=== PATIENT | female | born 1940 | race Caucasian/White ===

== ENCOUNTER 2020-01-26 14:52 | Inpatient (IN) | payer MEDICARE, OTHER ==
[~2020-01-26] VITALS: Ht 162.6 cm; Wt 70.3 kg
[2020-01-26] MEDS ORDERED: Z GUARD REMEDY PASTE 57 GM TUBE TOP PRN (20:00)
[2020-01-26] MEDS ORDERED: ASPI81TA31 PO (20:15)
[2020-01-26] MEDS ORDERED: IBUP-1955 PO (20:15)
[2020-01-26] MEDS ORDERED: NITR100C6 PO (20:15)
[2020-01-26] MEDS ORDERED: LEVO50TA8 PO (20:15)
[2020-01-26] MEDS ORDERED: KETO10TA2 PO (20:15)
[2020-01-26] MEDS ORDERED: SIMV-46 PO (20:15)
[2020-01-26] MEDS ORDERED: AZEL23SP NS (20:15)
[2020-01-26] MEDS ORDERED: BIMA2.5D5 EACHEYE (20:15)
[2020-01-26] MEDS ORDERED: ZOLP12.542 PO (20:15)
[2020-01-26 20:27] VITALS: BP 149/69
--- NOTE | 2020-01-26 22:24 | NUR ---
Pt arrived in the unit at 1939 via gurney. Pt came from [facility]. [facility] x2, often forgetful and needy. Admitting diagnosis of severe left hip degenerative joint disease. No acute distress noted. Denies pain/ discomfort. Notified Dr. Dewitt and Zain BALDWIN of admission. Awaiting med recon from Zain BALDWIN. Pertinent assessment done. MRSA sent to the lab. Oriented pt to the unit and equipment. Turned and repositioned. Both heels elevated. Safety measures maintained. Call light and personal items within reach. Will continue to monitor. Addendum: 01/26/20 at 2232 by Griselda Benson RN Both heels offloaded.
--- NOTE | 2020-01-26 22:28 | NUR ---
New order from Dr. Dewitt for Percocet 5-325 Q6H PRN for pain.
[2020-01-27] MEDS: OXYCODONE/APAP 5-325 MG TABLET PO PRN (01:00)
[2020-01-27 06:01] VITALS: BP 130/68
[2020-01-27 08:00] VITALS: BP 140/66
[2020-01-27] MEDS ORDERED: KETOROLAC TROMETHAMINE 10 MG TABLET PO SCH (09:00)
[2020-01-27] MEDS ORDERED: NITROFURANTOIN/NITROFURAN MAC 100 MG CAPSULE PO SCH (09:00)
[2020-01-27] MEDS: LEVOTHYROXINE SODIUM 50 MCG TABLET PO SCH (09:21)
[2020-01-27] MEDS: ASPIRIN 81 MG TAB.CHEW PO SCH (09:21)
[2020-01-27] MEDS: SIMVASTATIN 20 MG TABLET PO SCH (09:21)
[2020-01-27 16:05] VITALS: BP 156/75
[2020-01-27] MEDS: IBUPROFEN 600 MG TABLET PO PRN (16:12)
--- NOTE | 2020-01-27 16:39 | NUR ---
patient is alert, awake, episodes of forgetful, no sob, resp even nonlabored, noted with temp 100, cooling measures done, spoke to dr fu, order obtained for Levaquin 500mg iv daily, blood cultures, cbc, bmp, order noted, no distress noted, continue to monitor
[2020-01-27] MEDS ORDERED: levoFLOXacin 500 MG/D5W 500 MG in PREMIXED 1 EACH IV SCH (17:00)
[2020-01-27 17:29] LABS: BASOPHILS % (AUTO) 0.3 % (0.0-2.0); EOSINOPHILS # (AUTO) 0.2 K/uL (0.0-0.7); HEMOGLOBIN 10.8 g/dL (10.9-14.3); LYMPHOCYTES # (AUTO) 0.8 K/uL (20.0-40.0); LYMPHOCYTES % (AUTO) 9.9 % (20.5-51.5); MEAN CORPUSCULAR HEMOGLOBIN 29.6 uug (24.7-32.8); MEAN CORPUSCULAR HGB CONC 34 g/dL (32.3-35.6); MEAN CORPUSCULAR VOLUME 87.9 fL (75.5-95.3); MONOCYTES % (AUTO) 11.9 % (0.0-11.0); NEUTROPHILS # (AUTO) 6.5 K/uL (1.8-8.9); NEUTROPHILS % (AUTO) 75.9 % (38.5-71.5); PLATELET COUNT (AUTO) 164 K/uL (179-408); RED BLOOD CELL COUNT(AUTO) 3.64 MIL/uL (3.63-4.92); WHITE BLOOD COUNT (AUTO) 8.5 K/uL (3.8-11.8)
[2020-01-27 17:38] LABS: CREATININE 0.9 mg/dL (0.6-1.3); POTASSIUM 3.5 mmol/L (3.5-5.1)
[2020-01-27] MEDS: levoFLOXacin 500 MG TABLET PO SCH (17:47)
--- NOTE | 2020-01-27 17:52 | NUR ---
changed levaquin iv to po per dr fu, first dose administered po. no distress noted, continue to monitor
[2020-01-27 20:27] VITALS: BP 134/65
[2020-01-27] MEDS: LATANOPROST OPHT DROP 2.5 ML BOTTLE OP SCH (20:32)
--- NOTE | 2020-01-28 03:20 | NUR ---
Received Patient in bed. AAO x3. No acute distress or SOB was noted. On room air. Able to make needs known. No complain of pain. All due medication given as ordered and well tolerated. Safety measures maintained, fall prevention observed. Skin assessed. All needs attended promptly. Bed in locked and low position, side rails up x2 for safety, bed alarm on. Call light and frequently using items within reach. Continue to monitor and will endorse to the oncoming nurse accordingly.
[2020-01-28 05:27] VITALS: BP 145/62
[2020-01-28 08:00] VITALS: BP 148/73
[2020-01-28] MEDS: ASPIRIN 81 MG TAB.CHEW PO SCH (08:05)
[2020-01-28] MEDS: SIMVASTATIN 20 MG TABLET PO SCH (08:05)
[2020-01-28] MEDS: OXYCODONE/APAP 5-325 MG TABLET PO PRN ×2 (08:05→20:44)
[2020-01-28] MEDS: LEVOTHYROXINE SODIUM 50 MCG TABLET PO SCH (08:05)
--- NOTE | 2020-01-28 13:14 | NUR ---
patient is alert, oriented x3, but very forgetful, gets easily distracted, poor concentration, no sob, resp even nonlabored,skin warm and dry to touch, no distress noted, participated with PT, OT services tolerated well, pain is managed with pain medication, and with TV. kept clean and dry, no skin issues noted. needs attended timely.
[2020-01-28 16:25] VITALS: BP 148/73
[2020-01-28] MEDS: levoFLOXacin 500 MG TABLET PO SCH (16:46)
[2020-01-28 20:01] VITALS: BP 140/65
[2020-01-28] MEDS: LATANOPROST OPHT DROP 2.5 ML BOTTLE OP SCH (20:18)
[2020-01-29] MEDS: ZOLPIDEM 5 MG TABLET PO PRN ×2 (00:01→21:17)
--- NOTE | 2020-01-29 05:00 | NUR ---
Received Patient in bed watching TV. AAO x3, very forgetful. Every 5 minutes patient repeats same questions and conversation over again. Patient needs constant reorientation.No acute distress or SOB was noted. On room air. Able to make needs known.Comaplints of hip pain, requested medication for pain. Administered Percocet PRN, effective. All due medication given as ordered and well tolerated. Safety measures maintained, fall prevention observed. Skin assessed. All needs attended promptly. Assisted patient to the bathroom with a walker. Used the commode later on in the night. Patient is continent. patient slept well through the night, administered Ambien, as per patient request. Safety measures in place, Bed in locked and low position, side rails up x2 for safety, bed alarm on. Call light and frequently using items within reach. Continue to monitor and will endorse to the oncoming nurse accordingly.
[2020-01-29 05:41] VITALS: BP 146/69
[2020-01-29 07:30] VITALS: BP 154/73
[2020-01-29] MEDS: OXYCODONE/APAP 5-325 MG TABLET PO PRN (07:43)
[2020-01-29] MEDS: SIMVASTATIN 20 MG TABLET PO SCH (09:39)
[2020-01-29] MEDS: ASPIRIN 81 MG TAB.CHEW PO SCH (09:39)
[2020-01-29] MEDS: LEVOTHYROXINE SODIUM 50 MCG TABLET PO SCH (09:39)
--- NOTE | 2020-01-29 13:22 | NUR ---
INDIVIDUALIZED PLAN OF CARE
[2020-01-29 16:00] VITALS: BP 131/64
[2020-01-29] MEDS: levoFLOXacin 500 MG TABLET PO SCH (17:14)
--- NOTE | 2020-01-29 18:25 | NUR ---
Patient seen and examined by Dr. Renate MD ordered for 2 lidoderm patch for left hip and thigh daily.
[2020-01-29] MEDS: LIDOCAINE 5% PATCH TD SCH (18:46)
--- NOTE | 2020-01-29 19:35 | NUR ---
Awake, alert and forgetful, kept asking same question all over and over again. Not in respiratory distress. Complaint of slight pain on right thigh but refused pain meds offered. Instructed patient to call nurse once pain will escalate. Safety measures and fall prevention maintained. Continue care as planned.
[2020-01-29 19:51] VITALS: BP 156/70
[2020-01-29] MEDS: LATANOPROST OPHT DROP 2.5 ML BOTTLE OP SCH (20:12)
[2020-01-30] MEDS: OXYCODONE/APAP 5-325 MG TABLET PO PRN ×3 (03:10→20:41)
[2020-01-30 05:30] VITALS: BP 147/62
--- NOTE | 2020-01-30 05:36 | NUR ---
Shift End Report: Slept poorly, constantly calling for repeat questions and unnecessary. Very forgetful. Medicated once for pain with relief. No further complaint presented after, No significant event reported. Continue current rehab plan of care. Vs stable.
[2020-01-30 07:30] VITALS: BP 158/74
[2020-01-30] MEDS: SIMVASTATIN 20 MG TABLET PO SCH (08:39)
[2020-01-30] MEDS: LEVOTHYROXINE SODIUM 50 MCG TABLET PO SCH (08:39)
[2020-01-30] MEDS: ASPIRIN 81 MG TAB.CHEW PO SCH (08:39)
[2020-01-30 16:00] VITALS: BP 131/59
[2020-01-30] MEDS: levoFLOXacin 500 MG TABLET PO SCH (17:08)
--- NOTE | 2020-01-30 18:00 | NUR ---
Patient remains alert, oriented x 3, very forgetful, on room air, not in any form of distress. Due medications administered and tolerated well. Patient complained of left hip pain, given PRN pain medication with noted relief. Needs attended to promptly and met. Patient participated with therapeutic exercises. Call light and frequently used items placed within patient's reach. Safety measures maintained. Will endorse accordingly.
[2020-01-30] MEDS: LIDOCAINE 5% PATCH TD SCH (19:35)
[2020-01-30 20:00] VITALS: BP 156/80
[2020-01-30] MEDS: LATANOPROST OPHT DROP 2.5 ML BOTTLE OP SCH (20:14)
--- NOTE | 2020-01-30 20:41 | NUR ---
Received Patient in bed watching TV. AAO x3, very forgetful. Needs constant reorientation.No acute distress or SOB was noted. On room air. Able to make needs known.Complaints of hip pain, requested medication for pain. Administered Percocet PRN, effective. All due medication given as ordered and well tolerated. applied lidocaine patch to her hip. Safety measures in place, Bed in locked and low position, side rails up x2 for safety, bed alarm on. Call light and frequently using items within reach. Continue to monitor.
[2020-01-30] MEDS: ZOLPIDEM 5 MG TABLET PO PRN (21:24)
--- NOTE | 2020-01-30 21:28 | NUR ---
administered Ambien, per patient request to help fall asleep, will monitor for effectiveness through the night.
[2020-01-31 04:00] VITALS: BP 151/73
--- NOTE | 2020-01-31 05:55 | NUR ---
Patient slept poorly, woke up multiple times. Frequent urination, incontinent. Patient verbally complained about " I am peeing too much, this is not normal." Requested to see doctor in the morning. will endorse next shift. Changed and kept clean, dry, and comfortable. Assisted onto the commode once this night. All needs attended promptly.Safety measures in place, Bed in locked and low position, side rails up x2 for safety, bed alarm on. Call light and frequently using items within reach. Continue to monitor and will endorse to the oncoming nurse accordingly.
[2020-01-31 08:31] VITALS: BP 124/82
[2020-01-31] MEDS: SIMVASTATIN 20 MG TABLET PO SCH (09:01)
[2020-01-31] MEDS: ASPIRIN 81 MG TAB.CHEW PO SCH (09:01)
[2020-01-31] MEDS: LEVOTHYROXINE SODIUM 50 MCG TABLET PO SCH (09:02)
[2020-01-31] MEDS: OXYCODONE/APAP 5-325 MG TABLET PO PRN (09:06)
--- NOTE | 2020-01-31 09:56 | NUR ---
Received patient in bed awake, Pt. is AAO x 2 with episodes of forgetfulness. No acute distress or any SOB noted. Patient c/o pain of left hip Percocet 5/325, 1 tab administered before PT. patient tolerated all due medications. Patient is ambulatory with 1 person assist and BRP. Skin kept clean and dry. Made comfortable, needs attended and will continue with care.
[2020-01-31 16:05] VITALS: BP 123/68
[2020-01-31] MEDS: levoFLOXacin 500 MG TABLET PO SCH (16:11)
[2020-01-31] MEDS: LIDOCAINE 5% PATCH TD SCH (18:37)
--- NOTE | 2020-01-31 18:43 | NUR ---
Patient in stable condition. NO SOB or any acute distress noted. Patient ambulatory with a walker and person assist. on continuous PT/OT therapy. Skin kept clean and dry, made comfortable, needs attended and met, call light left at bed side and will continue with care.
[2020-01-31 20:00] VITALS: BP 138/66
[2020-01-31] MEDS: LATANOPROST OPHT DROP 2.5 ML BOTTLE OP SCH (20:15)
--- NOTE | 2020-01-31 20:50 | NUR ---
Received pt resting in bed and watching tv. AAO x2, very forgetful. No acute distress noted. Denies pain/ discomfort. Assisted to the bathroom using walker. Due med given as ordered. Safety measures maintained. Call light and personal items within reach. Will continue to monitor.
[2020-02-01 04:53] VITALS: BP 147/74
[2020-02-01 07:30] VITALS: BP 160/72
[2020-02-01] MEDS: ASPIRIN 81 MG TAB.CHEW PO SCH (08:22)
[2020-02-01] MEDS: SIMVASTATIN 20 MG TABLET PO SCH (08:23)
[2020-02-01] MEDS: LEVOTHYROXINE SODIUM 50 MCG TABLET PO SCH (08:23)
[2020-02-01 09:00] VITALS: BP 125/70
[2020-02-01 15:54] VITALS: BP 118/70
[2020-02-01] MEDS: LIDOCAINE 5% PATCH TD SCH (17:08)
--- NOTE | 2020-02-01 18:39 | NUR ---
EOS Note: No significant acute changes during this shift. Pt. remain A/Ox1, forgetful, verbally responsive and able to make her needs known. All due medications given as ordered and tolerated well. Pt. tolerating diet well. No s/sx of bleeding. Pt. participated with PT and tolerated tx well. No new skin condition noted, remain intact. All pt. needs attended and met. Safety measures in place. Call light and all frequently used items within pt. reach. Will endorse to oncoming shift accordingly.
--- NOTE | 2020-02-01 19:29 | NUR ---
Received patient awake, alert, forgetful, requesting assistance to go to the bathroom. TRACK LABORER at bedsside, assisted with FWW, slow but steady gait. Voided good. Denied any pain/discomforts at this time. Safety measures and fall prevention maintained. Continue care as planned.
[2020-02-01 20:14] VITALS: BP 134/65
[2020-02-01] MEDS: LATANOPROST OPHT DROP 2.5 ML BOTTLE OP SCH (20:34)
[2020-02-01] MEDS: ZOLPIDEM 5 MG TABLET PO PRN (21:28)
[2020-02-02 04:00] VITALS: BP 146/72
[2020-02-02] MEDS: OXYCODONE/APAP 5-325 MG TABLET PO PRN ×2 (04:37→11:24)
--- NOTE | 2020-02-02 07:09 | NUR ---
Shift End Report: VS stable. Medicated once for pain with help. No further complaint presented. All needs attended and met. Patient very forgetful, kept asking/repeating any questions/needs/care provided. Slept fairly. No significant event reported all night. Continue current rehab plan of care.
[2020-02-02 07:40] VITALS: BP 171/87
[2020-02-02] MEDS: IBUPROFEN 600 MG TABLET PO PRN (07:52)
[2020-02-02] MEDS: LEVOTHYROXINE SODIUM 50 MCG TABLET PO SCH (08:01)
[2020-02-02] MEDS: SIMVASTATIN 20 MG TABLET PO SCH (08:01)
[2020-02-02] MEDS: ASPIRIN 81 MG TAB.CHEW PO SCH (08:01)
[2020-02-02] MEDS: VALSARTAN 80 MG TABLET PO SCH (10:06)
--- NOTE | 2020-02-02 13:16 | NUR ---
INTERDISCIPLINARY TEAM CONFERENCE
[2020-02-02 15:21] VITALS: BP 132/64
--- NOTE | 2020-02-02 18:02 | NUR ---
patient is alert, very forgetful, no sob, resp even nonlabored, skin warm and dry to touch, pain is managed with pain medication and with distractions, repositioning, no distress noted, patient is supervised to bowel, and bladder function, needs attended timely, kept safe, needs attended timely
[2020-02-02] MEDS: LIDOCAINE 5% PATCH TD SCH (18:57)
--- NOTE | 2020-02-02 19:36 | NUR ---
Awake, alert and orient to name, place and situation but very forgetful. Denies any pain/discomforts at this time. Safety measures and fall prevention maintained. Continue care as planned.
[2020-02-02 20:12] VITALS: BP 130/61
[2020-02-02] MEDS: LATANOPROST OPHT DROP 2.5 ML BOTTLE OP SCH (20:20)
[2020-02-02] MEDS: ZOLPIDEM 5 MG TABLET PO PRN (22:59)
[2020-02-03 05:24] VITALS: BP 137/66
--- NOTE | 2020-02-03 06:01 | NUR ---
Shift End Report: Slept in between care. Constantly calling and calling for help. No complaint of pain presented all night. Had BM x2 incontinence. All needs attended and met. No fall/injury. No significant event reported. Continue current rehab plan of care. VS stable.
[2020-02-03] MEDS: OXYCODONE/APAP 5-325 MG TABLET PO PRN ×2 (06:25→12:26)
[2020-02-03 08:00] VITALS: BP 137/75
[2020-02-03] MEDS: SIMVASTATIN 20 MG TABLET PO SCH (08:21)
[2020-02-03] MEDS: ASPIRIN 81 MG TAB.CHEW PO SCH (08:21)
[2020-02-03] MEDS: VALSARTAN 80 MG TABLET PO SCH (08:21)
[2020-02-03] MEDS: LEVOTHYROXINE SODIUM 50 MCG TABLET PO SCH (08:21)
[2020-02-03] MEDS: IBUPROFEN 600 MG TABLET PO PRN (08:22)
[2020-02-03 16:19] VITALS: BP 127/65
[2020-02-03] MEDS: LIDOCAINE 5% PATCH TD SCH (18:22)
--- NOTE | 2020-02-03 18:22 | NUR ---
no distress noted during shift, noted with blanchable redness to right heel, and to left buttock, repositioned patient, heels floated, convinced patient to stay on her side for 2 hours, patient goes back to her back, independent for positioning, continue to monitor and convince to stay on side as tolerated.
--- NOTE | 2020-02-03 18:52 | NUR ---
patient kept calling to station to position her on her back, does not want to stay on her side, and does not want to float her heels, risks and benefit explained regarding skin, patient verbalized understanding of it.
[2020-02-03] MEDS: LATANOPROST OPHT DROP 2.5 ML BOTTLE OP SCH (20:17)
[2020-02-03 20:55] VITALS: BP 124/64
--- NOTE | 2020-02-03 21:03 | NUR ---
Received pt resting in bed. AAO x2-3, very forgetful. No acute distress noted. Denies pain/ discomfort. Due med given as ordered. Turned and repositioned but pt would often go back on her back. Risks and benefits explained. Both heels offloaded. Safety measures maintained. Call light and personal items within reach. Will continue to monitor.
[2020-02-04] MEDS: OXYCODONE/APAP 5-325 MG TABLET PO PRN ×2 (04:57→20:14)
[2020-02-04 05:39] VITALS: BP 119/77
[2020-02-04 08:00] VITALS: BP 130/60
[2020-02-04] MEDS: ASPIRIN 81 MG TAB.CHEW PO SCH (08:36)
[2020-02-04] MEDS: VALSARTAN 80 MG TABLET PO SCH (08:36)
[2020-02-04] MEDS: SIMVASTATIN 20 MG TABLET PO SCH (08:36)
[2020-02-04] MEDS: LEVOTHYROXINE SODIUM 50 MCG TABLET PO SCH (08:36)
--- NOTE | 2020-02-04 11:30 | NUR ---
Received patient in bed awake, Pt. is AAO x 2 with forgetfulness noted. No acute distress or any SOB noted. Denies pain at this time. All due medications administered and tolerated well. Patient is ambulatory with 1 person assist and BRP. On continuous PT/OT therapy. Skin kept clean and dry. Made comfortable, needs attended and will continue with care.
[2020-02-04 16:03] VITALS: BP 125/60
[2020-02-04] MEDS: LIDOCAINE 5% PATCH TD SCH (18:49)
[2020-02-04 19:34] VITALS: BP 127/61
--- NOTE | 2020-02-04 19:51 | NUR ---
End of shift report given to PM nurse.
[2020-02-04] MEDS: LATANOPROST OPHT DROP 2.5 ML BOTTLE OP SCH (21:50)
[2020-02-05] MEDS: ZOLPIDEM 5 MG TABLET PO PRN ×2 (02:52→23:43)
--- NOTE | 2020-02-05 04:04 | NUR ---
Received Patient in bed. AAO x3, very forgetful. No acute distress or SOB was noted. On room air. Able to make needs known. Complained of pain on the left hip, rated her pain 6/10 on numeric scale, PRN Percocet 5-325 administered and effective. All due medication given as ordered and well tolerated. Patient asked for sleeping pill, Ambien 5 mg given. Pain assessed and reassessed after pain medication. Safety measures maintained, fall prevention observed. Skin assessed. All needs attended promptly. Bed in locked and low position, side rails up x2 for safety, bed alarm on. Call light and frequently using items within reach. Continue to monitor and will endorse to the oncoming nurse accordingly.
[2020-02-05 05:07] VITALS: BP 126/57
[2020-02-05 08:19] VITALS: BP 126/69
[2020-02-05] MEDS: LEVOTHYROXINE SODIUM 50 MCG TABLET PO SCH (08:22)
[2020-02-05] MEDS: SIMVASTATIN 20 MG TABLET PO SCH (08:22)
[2020-02-05] MEDS: ASPIRIN 81 MG TAB.CHEW PO SCH (08:22)
[2020-02-05] MEDS: VALSARTAN 80 MG TABLET PO SCH (08:23)
[2020-02-05] MEDS: OXYCODONE/APAP 5-325 MG TABLET PO PRN ×2 (09:17→20:51)
--- NOTE | 2020-02-05 11:19 | NUR ---
Received patient awake in bed with periods of forgetful. Patient continue therapy for ambulation and unsteady gait. Patient continue pain management prior to therapy with good effect. Patient continue fall risk precaution maintained. will continue monitor
[2020-02-05 15:45] VITALS: BP 111/41
[2020-02-05] MEDS: LIDOCAINE 5% PATCH TD SCH (18:00)
[2020-02-05 20:00] VITALS: BP 119/67
[2020-02-05] MEDS: LATANOPROST OPHT DROP 2.5 ML BOTTLE OP SCH (20:49)
[2020-02-06 04:50] VITALS: BP 115/47
--- NOTE | 2020-02-06 05:21 | NUR ---
No acute events overnight, no falls, no fever, no nausea and no vomiting. pain is well managed with current pain regimen, pt able to ambulate to the bathroom with assist with the front wheel walker
[2020-02-06] MEDS: OXYCODONE/APAP 5-325 MG TABLET PO PRN ×3 (05:45→20:42)
[2020-02-06 07:30] VITALS: BP 119/59
[2020-02-06] MEDS: SIMVASTATIN 20 MG TABLET PO SCH (08:12)
[2020-02-06] MEDS: LEVOTHYROXINE SODIUM 50 MCG TABLET PO SCH (08:12)
[2020-02-06] MEDS: ASPIRIN 81 MG TAB.CHEW PO SCH (08:12)
[2020-02-06] MEDS: VALSARTAN 80 MG TABLET PO SCH (08:12)
--- NOTE | 2020-02-06 15:08 | NUR ---
Received patient awake in bed in stable condition. AOX2, forgetful. Patient continue pain management prior to therapy, given. Not in distress. Patient assisted from bed to bathroom with FWW. tolerated well. will continue monitor
[2020-02-06 15:16] VITALS: BP 121/50
[2020-02-06] MEDS: LIDOCAINE 5% PATCH TD SCH (18:02)
[2020-02-06] MEDS: IBUPROFEN 600 MG TABLET PO PRN (18:05)
[2020-02-06 20:00] VITALS: BP 121/50
[2020-02-06] MEDS: LATANOPROST OPHT DROP 2.5 ML BOTTLE OP SCH (20:42)
--- NOTE | 2020-02-06 22:00 | NUR ---
received patient awake , able to follow simple command with forgetfulness on RA, uses a walker to get up , assist to the commode , doesn't want to be bothered , patient wants to go t sleep , pain of left hip 07/14 after percocet
--- NOTE | 2020-02-06 22:13 | NUR ---
is involved in the patient;s planc of care , patient follows commmand but needs reinforcement for routine an care plan of care Addendum: 02/06/20 at 2213 by TARA JACOME RN Amended: Hector added. Addendum: 02/06/20 at 2217 by TARA JACOME RN Amended: Hector added. Addendum: 02/06/20 at 2218 by TARA JACOME RN Amended: Links added. Addendum: 02/06/20 at 2219 by TARA JACOME RN Amended: Links added. Addendum: 02/06/20 at 2220 steven JACOME RN Amended: Links added.
--- NOTE | 2020-02-06 22:16 | NUR ---
patient is able to call and able to use the commode , patient also use the walker occasionally with 1 person assist Addendum: 02/06/20 at 2217 by TARA JACOME RN Amended: Links added. Addendum: 02/06/20 at 2217 by TARA JACOME RN Amended: Links added. Addendum: 02/06/20 at 2219 by TARA JACOME RN Amended: Links added. Addendum: 02/06/20 at 2220 by TARA JACOME RN Amended: Links added.
--- NOTE | 2020-02-06 22:18 | NUR ---
able to swallow with no noted difficulty , will tolerate regualr diet while in the hospital Addendum: 02/06/20 at 2218 by TARA JACOME RN Amended: Hector added. Addendum: 02/06/20 at 2219 by TARA JACOME RN Amended: Hector added. Addendum: 02/06/20 at 2220 by TARA JACOME RN Amended: Links added.
--- NOTE | 2020-02-06 22:19 | NUR ---
patient will not have incidents of fall during hospitalization , will be able t ouse the call light for assist on activities Addendum: 02/06/20 at 2219 by TARA JACOME RN Amended: Links added. Addendum: 02/06/20 at 2220 steven JACOME RN Amended: Links added.
--- NOTE | 2020-02-06 22:20 | NUR ---
patient is able to talk and express self with no difficulty Addendum: 02/06/20 at 2220 by TARA JACOME RN Amended: Links added.
--- NOTE | 2020-02-06 22:29 | NUR ---
patient needs reinforcement on medication ins and routine care Addendum: 02/06/20 at 2229 by TARA JACOME RN Amended: Links added.
--- NOTE | 2020-02-06 22:32 | NUR ---
patient needs reinforcement on medication ins and routine care Addendum: 02/06/20 at 2232 by TARA JACOME RN Amended: Hector added. Addendum: 02/06/20 at 2233 by TARA JACOME RN Amended: Hector bliss.
--- NOTE | 2020-02-06 22:33 | NUR ---
able to eat and tolerate regular diet during hospitalization Addendum: 02/06/20 at 2233 by TARA JACOME RN Amended: Links added.
[2020-02-07 04:00] VITALS: BP 128/61
[2020-02-07] MEDS: OXYCODONE/APAP 5-325 MG TABLET PO PRN (05:49)
[2020-02-07 08:00] VITALS: BP 159/60
[2020-02-07] MEDS: SIMVASTATIN 20 MG TABLET PO SCH (08:25)
[2020-02-07] MEDS: LEVOTHYROXINE SODIUM 50 MCG TABLET PO SCH (08:25)
[2020-02-07] MEDS: ASPIRIN 81 MG TAB.CHEW PO SCH (08:25)
[2020-02-07] MEDS: VALSARTAN 80 MG TABLET PO SCH (08:25)
--- NOTE | 2020-02-07 09:50 | NUR ---
Patient is AAO x 2. No acute distress or any SOB noted. NO c/o pain. Vital signs stable for patient. Due medications administered and tolerated well. Patient is on continuous PT/OT therapy. With one person assist for care and uses the walker for ambulation and one person assist for care. Safety measures in place, call light left within easy reach and will continue with care.
[2020-02-07 13:09] VITALS: BP 114/53
[2020-02-07 16:02] VITALS: BP 113/58
--- NOTE | 2020-02-07 18:26 | NUR ---
Patient in bed and watching TV. IN stable condition. Vital signs stable. Needs attended and met. Call light left at bed side and will continue with care.
[2020-02-07] MEDS: LIDOCAINE 5% PATCH TD SCH (19:00)
[2020-02-07] MEDS: LATANOPROST OPHT DROP 2.5 ML BOTTLE OP SCH (20:13)
--- NOTE | 2020-02-07 20:42 | NUR ---
Awake, in bed, watching TV game show at this time. No s/s of respiratory distress. Denies any pain/discomforts. Safety measures and fall prevention maintained. Continue care as planned.
[2020-02-07 20:43] VITALS: BP 134/60
--- NOTE | 2020-02-08 05:44 | NUR ---
Shift End Report: VS stable. No complaint presented all night. Ambulatory to the bathroom with walker and minimal 1 person assist. No fall/injury reported. All needs attended and met. Slept in between care. No significant event reported. Continue current rehab plan of care
[2020-02-08 05:56] VITALS: BP 148/68
[2020-02-08] MEDS: OXYCODONE/APAP 5-325 MG TABLET PO PRN (07:39)
[2020-02-08 08:00] VITALS: BP 165/65
[2020-02-08] MEDS: LEVOTHYROXINE SODIUM 50 MCG TABLET PO SCH (08:35)
[2020-02-08] MEDS: ASPIRIN 81 MG TAB.CHEW PO SCH (08:35)
[2020-02-08] MEDS: VALSARTAN 80 MG TABLET PO SCH (08:35)
[2020-02-08] MEDS: SIMVASTATIN 20 MG TABLET PO SCH (08:35)
--- NOTE | 2020-02-08 09:41 | NUR ---
Received patient in bed, awake at the start of shift. Patient is AAO x 2, no acute distress noted. Vital signs stable. Patient asked for pain pill for pain on the left hip 8/10 up on assessment. Percocet 5/325 1 tab administered and tolerated well. All due scheduled morning medications administered as ordered. Repositioned for comfort. Needs attended and met. Safety measures in place, call light at bed side and will continue with care.
[2020-02-08 15:49] VITALS: BP 122/60
[2020-02-08] MEDS: LIDOCAINE 5% PATCH TD SCH (18:22)
--- NOTE | 2020-02-08 19:34 | NUR ---
patient in stable condition, VS stable. No c/o pain at this time and will continue with care.
[2020-02-08 20:00] VITALS: BP 121/59
[2020-02-08] MEDS: LATANOPROST OPHT DROP 2.5 ML BOTTLE OP SCH (20:51)
--- NOTE | 2020-02-08 20:52 | NUR ---
Received pt resting in bed. AAO x2-3, very forgetful. No acute distress noted. Denies pain/ discomfort. Due med given as ordered. Assisted to the bathroom using walker, standby assist, tolerated well. Turned and repositioned. Both heels offloaded. Safety measures maintained. Call light and personal items within reach. Will continue to monitor.
[2020-02-09 04:00] VITALS: BP 128/52
[2020-02-09 07:30] VITALS: BP 117/81
[2020-02-09] MEDS: LEVOTHYROXINE SODIUM 50 MCG TABLET PO SCH (08:12)
[2020-02-09] MEDS: ASPIRIN 81 MG TAB.CHEW PO SCH (08:12)
[2020-02-09] MEDS: SIMVASTATIN 20 MG TABLET PO SCH (08:12)
[2020-02-09] MEDS: VALSARTAN 80 MG TABLET PO SCH (08:15)
--- NOTE | 2020-02-09 08:20 | NUR ---
Patient awake, alert, oriented x3, forgetful, not in any form of distress, on room air. Due medications administered and tolerated well. No complain of any discomfort at this time. Assisted patient to the bathroom and back to bed, ambulated with walker. Call light and frequently used items placed within patient's reach. Safety measures maintained.
[2020-02-09] MEDS: OXYCODONE/APAP 5-325 MG TABLET PO PRN ×2 (09:59→21:13)
--- NOTE | 2020-02-09 15:25 | NUR ---
INTERDISCIPLINARY TEAM CONFERENCE
[2020-02-09 15:48] VITALS: BP 94/59
[2020-02-09] MEDS: LIDOCAINE 5% PATCH TD SCH (19:32)
[2020-02-09] MEDS: LATANOPROST OPHT DROP 2.5 ML BOTTLE OP SCH (20:16)
[2020-02-09 21:17] VITALS: BP 120/64
--- NOTE | 2020-02-10 03:50 | NUR ---
Received Patient in bed. AAO x3, very forgetful. No acute distress or SOB was noted. On room air. Able to make needs known. Complained of pain on her left hip, rated her pain 6/10 in numeric scale, Percocet 5-325 mg administered and effective. All due medication given as ordered and well tolerated. Pin assessed and reassessed afterpain medication. Safety measures maintained, fall prevention observed. Skin assessed. All needs attended promptly. Bed in locked and low position, side rails up x2 for safety, bed alarm on. Call light and frequently using items within reach. Continue to monitor and will endorse to the oncoming nurse accordingly.
[2020-02-10 04:55] VITALS: BP 127/60
[2020-02-10 08:00] VITALS: BP 140/55
[2020-02-10] MEDS: VALSARTAN 80 MG TABLET PO SCH (08:11)
[2020-02-10] MEDS: LEVOTHYROXINE SODIUM 50 MCG TABLET PO SCH (08:19)
[2020-02-10] MEDS: SIMVASTATIN 20 MG TABLET PO SCH (08:20)
[2020-02-10] MEDS: ASPIRIN 81 MG TAB.CHEW PO SCH (08:20)
--- NOTE | 2020-02-10 14:56 | NUR ---
Received patient awake in bed in stable condition. AOx3, forgetful, no complaint of pain/discomfort noted. Patient continue pain management prior to therapy. Assisted from bed to bathroom with FWW. tolerated well. Patient for discharge at 3pm. Patient spouse will pick her up via private car. Discharge prescription given to patient. Procedures result given to patients. not in distress. will continue monitor
[2020-02-10 15:00] VITALS: BP 124/52
[2020-02-10] MEDS: OXYCODONE/APAP 5-325 MG TABLET PO PRN (15:13)
--- NOTE | 2020-02-10 16:22 | NUR ---
Patient discharge to home around 4pm in stable condition via private car. timekeeping supervisor by . Discharge summary and discharge prescription given to patient and explain to spouse. verbalize understanding. Controlled medication prescription given to spouse. Pain medication given prior discharge.
== END 2020-02-10 16:15 | disposition home health service (06) | DRG 558 ==
PROVIDERS: ADMIT Physical Medicine & Rehabilitation Pain Medicine; ATTEND Physical Medicine & Rehabilitation Pain Medicine
DX: M70.62 Trochanteric bursitis, left hip (principal); M16.12 Unilateral primary osteoarthritis, left hip; M79.18 Myalgia, other site; S70.02XD Contusion of left hip, subsequent encounter; G89.29 Other chronic pain; I10 Essential (primary) hypertension; K21.9 Gastro-esophageal reflux disease without esophagitis; Z91.81 History of falling; Z86.73 Personal history of transient ischemic attack (TIA), and cerebral infarction without residual deficits; W01.0XXD Fall on same level from slipping, tripping and stumbling without subsequent striking against object, subsequent encounter; R53.81 Other malaise; Z88.0 Allergy status to penicillin; E03.9 Hypothyroidism, unspecified; R79.89 Other specified abnormal findings of blood chemistry
CPT/HCPCS: 36415; 85025; 87040; J1956; J7040

== ENCOUNTER 2020-03-29 15:06 | Inpatient (IN) | payer MEDICARE, OTHER ==
[~2020-03-29] VITALS: Ht 162.6 cm; Wt 69.5 kg
[~2020-03-29 15:06] MED LIST: ASPI81TA31 PO; AZEL23SP NS; BIMA2.5D5 EACHEYE; IBUP-1955 PO; KETO10TA2 PO; LEVO50TA8 PO; NITR100C6 PO; SIMV-46 PO; ZOLP12.542 PO
[2020-03-29] MEDS ORDERED: Z GUARD REMEDY PASTE 57 GM TUBE TOP PRN (19:30)
[2020-03-29 21:21] VITALS: BP 109/54
[2020-03-29] MEDS ORDERED: ASPI-612 PO (22:07)
[2020-03-29] MEDS ORDERED: OMEP20CA16 PO (22:07)
[2020-03-29] MEDS ORDERED: BIMA2.5D5 EACHEYE (22:07)
[2020-03-29] MEDS ORDERED: OXYC10TA49 PO (22:07)
[2020-03-29] MEDS ORDERED: ZOLP12.542 PO (22:07)
[2020-03-29] MEDS ORDERED: AZEL23SP BNOSTRILS (22:07)
[2020-03-29] MEDS ORDERED: LEVO50TA8 PO (22:07)
[2020-03-29] MEDS ORDERED: SIMV-46 PO (22:07)
[2020-03-30 05:40] VITALS: BP 120/58
[2020-03-30 08:00] VITALS: BP 119/58
[2020-03-30] MEDS: KETOROLAC TROMETHAMINE 10 MG TABLET PO SCH (08:47)
[2020-03-30] MEDS: ASPIRIN 81 MG TAB.CHEW PO SCH (08:47)
[2020-03-30] MEDS: LEVOTHYROXINE SODIUM 50 MCG TABLET PO SCH (11:13)
[2020-03-30 16:10] VITALS: BP 110/48
[2020-03-30 20:00] VITALS: BP 128/65
[2020-03-30] MEDS: OXYCODONE HCL 5 MG TABLET PO PRN (20:13)
[2020-03-30] MEDS: LATANOPROST OPHT DROP 2.5 ML BOTTLE EACHEYE SCH (20:13)
[2020-03-30] MEDS: SIMVASTATIN 20 MG TABLET PO SCH (20:13)
[2020-03-31] MEDS: diphenhydrAMINE 25 MG CAP PO PRN (00:44)
[2020-03-31 04:00] VITALS: BP 112/53
[2020-03-31] MEDS: LEVOTHYROXINE SODIUM 50 MCG TABLET PO SCH (06:16)
[2020-03-31 08:00] VITALS: BP 122/62
[2020-03-31] MEDS: KETOROLAC TROMETHAMINE 10 MG TABLET PO SCH (08:53)
[2020-03-31] MEDS: ASPIRIN 81 MG TAB.CHEW PO SCH (08:53)
[2020-03-31] MEDS: OXYCODONE HCL 5 MG TABLET PO PRN ×2 (08:53→21:32)
[2020-03-31] MEDS: DOCUSATE SODIUM 100 MG CAPSULE PO SCH ×2 (12:33→21:31)
[2020-03-31] MEDS: MIRALAX 17 GM POWD.PACK PO PRN (12:37)
[2020-03-31 16:00] VITALS: BP 109/56
[2020-03-31 20:00] VITALS: BP 127/57
[2020-03-31] MEDS: LATANOPROST OPHT DROP 2.5 ML BOTTLE EACHEYE SCH (21:31)
[2020-03-31] MEDS: SIMVASTATIN 20 MG TABLET PO SCH (21:32)
[2020-04-01] MEDS: OXYCODONE HCL 5 MG TABLET PO PRN ×3 (05:42→20:27)
[2020-04-01 05:49] VITALS: BP 142/69
[2020-04-01] MEDS: LEVOTHYROXINE SODIUM 50 MCG TABLET PO SCH (06:01)
[2020-04-01 06:15] LABS: BASOPHILS % (AUTO) 0.3 % (0.0-2.0); EOSINOPHILS # (AUTO) 0.2 K/uL (0.0-0.7); EOSINOPHILS % (AUTO) 2.6 % (0.0-7.0); HEMATOCRIT 29.3 % (31.2-41.9); LYMPHOCYTES % (AUTO) 11.4 % (20.5-51.5); MEAN CORPUSCULAR HEMOGLOBIN 31.2 uug (24.7-32.8); MEAN CORPUSCULAR HGB CONC 34 g/dL (32.3-35.6); MEAN CORPUSCULAR VOLUME 91.2 fL (75.5-95.3); MONOCYTES # (AUTO) 0.8 K/uL (2.0-10.0); MONOCYTES % (AUTO) 10.1 % (0.0-11.0); NEUTROPHILS # (AUTO) 6.3 K/uL (1.8-8.9); NEUTROPHILS % (AUTO) 75.6 % (38.5-71.5); PLATELET COUNT (AUTO) 219 K/uL (179-408); RED BLOOD CELL COUNT(AUTO) 3.21 MIL/uL (3.63-4.92); WHITE BLOOD COUNT (AUTO) 8.4 K/uL (3.8-11.8)
[2020-04-01 06:55] LABS: BILIRUBIN,TOTAL 1.2 mg/dL (0.2-1.0); CREATININE 0.7 mg/dL (0.6-1.3); MAGNESIUM 2.2 mg/dL (1.8-2.4); PHOSPHOROUS 3.2 mg/dL (2.5-4.9); POTASSIUM 4.1 mmol/L (3.5-5.1); TOTAL PROTEIN, SERUM 5.6 g/dL (6.4-8.2)
[2020-04-01 07:30] VITALS: BP 134/72
[2020-04-01 07:34] LABS: THYROID STIMULATING HORMONE 6.326 mIU/mL (0.358-3.740)
[2020-04-01] MEDS: diphenhydrAMINE 25 MG CAP PO PRN (09:06)
[2020-04-01] MEDS: DOCUSATE SODIUM 100 MG CAPSULE PO SCH ×2 (09:06→20:27)
[2020-04-01] MEDS: ASPIRIN 81 MG TAB.CHEW PO SCH (09:06)
[2020-04-01] MEDS: KETOROLAC TROMETHAMINE 10 MG TABLET PO SCH (09:10)
[2020-04-01] MEDS: MIRALAX 17 GM POWD.PACK PO PRN (09:14)
[2020-04-01 15:50] VITALS: BP 115/51
[2020-04-01 20:00] VITALS: BP 123/59
[2020-04-01] MEDS: SIMVASTATIN 20 MG TABLET PO SCH (20:27)
[2020-04-01] MEDS: LATANOPROST OPHT DROP 2.5 ML BOTTLE EACHEYE SCH (20:51)
[2020-04-02] MEDS: diphenhydrAMINE 25 MG CAP PO PRN ×2 (01:48→17:08)
[2020-04-02 04:00] VITALS: BP 120/68
[2020-04-02] MEDS: LEVOTHYROXINE SODIUM 50 MCG TABLET PO SCH (06:10)
[2020-04-02 07:30] VITALS: BP 133/63
[2020-04-02] MEDS: DOCUSATE SODIUM 100 MG CAPSULE PO SCH ×2 (09:10→20:35)
[2020-04-02] MEDS: ASPIRIN 81 MG TAB.CHEW PO SCH (09:10)
[2020-04-02] MEDS: KETOROLAC TROMETHAMINE 10 MG TABLET PO SCH (09:10)
[2020-04-02] MEDS: OXYCODONE HCL 5 MG TABLET PO PRN (12:38)
[2020-04-02 16:00] VITALS: BP 120/52
[2020-04-02 20:19] VITALS: BP 137/69
[2020-04-02] MEDS: LATANOPROST OPHT DROP 2.5 ML BOTTLE EACHEYE SCH (20:36)
[2020-04-03 04:41] VITALS: BP 131/56
[2020-04-03] MEDS: LEVOTHYROXINE SODIUM 50 MCG TABLET PO SCH (06:52)
[2020-04-03 08:54] VITALS: BP 117/58
[2020-04-03] MEDS: DOCUSATE SODIUM 100 MG CAPSULE PO SCH ×2 (09:00→20:35)
[2020-04-03] MEDS: OXYCODONE HCL 5 MG TABLET PO PRN ×2 (10:07→19:23)
[2020-04-03] MEDS: ASPIRIN 81 MG TAB.CHEW PO SCH (10:07)
[2020-04-03 11:51] LABS: BASOPHILS # (AUTO) 0.1 K/uL (0.0-8.0); BASOPHILS % (AUTO) 0.8 % (0.0-2.0); EOSINOPHILS # (AUTO) 0.1 K/uL (0.0-0.7); EOSINOPHILS % (AUTO) 1.5 % (0.0-7.0); HEMATOCRIT 28.5 % (31.2-41.9); HEMOGLOBIN 9.8 g/dL (10.9-14.3); LYMPHOCYTES # (AUTO) 1.3 K/uL (20.0-40.0); LYMPHOCYTES % (AUTO) 14.7 % (20.5-51.5); MEAN CORPUSCULAR HGB CONC 35 g/dL (32.3-35.6); MEAN CORPUSCULAR VOLUME 89.9 fL (75.5-95.3); NEUTROPHILS # (AUTO) 6.4 K/uL (1.8-8.9); PLATELET COUNT (AUTO) 270 K/uL (179-408); RED BLOOD CELL COUNT(AUTO) 3.17 MIL/uL (3.63-4.92); WHITE BLOOD COUNT (AUTO) 8.9 K/uL (3.8-11.8)
[2020-04-03 12:04] LABS: BILIRUBIN,TOTAL 1.1 mg/dL (0.2-1.0); CREATININE 0.8 mg/dL (0.6-1.3); POTASSIUM 4.2 mmol/L (3.5-5.1); TOTAL PROTEIN, SERUM 6.1 g/dL (6.4-8.2)
[2020-04-03] MEDS: CLINDAMYCIN PHOSPHATE IV 600 MG in IV DEXTROSE 5% 100 ML IV SCH ×2 (13:31→21:03)
[2020-04-03 15:29] VITALS: BP 112/55
[2020-04-03 20:26] VITALS: BP 120/58
[2020-04-03] MEDS: LATANOPROST OPHT DROP 2.5 ML BOTTLE EACHEYE SCH (20:35)
[2020-04-04] MEDS: OXYCODONE HCL 5 MG TABLET PO PRN ×2 (01:51→18:23)
[2020-04-04 04:50] VITALS: BP 124/58
[2020-04-04] MEDS: CLINDAMYCIN PHOSPHATE IV 600 MG in IV DEXTROSE 5% 100 ML IV SCH ×3 (06:22→21:14)
[2020-04-04] MEDS: LEVOTHYROXINE SODIUM 50 MCG TABLET PO SCH (06:24)
[2020-04-04 08:13] VITALS: BP 123/72
[2020-04-04] MEDS: DOCUSATE SODIUM 100 MG CAPSULE PO SCH ×2 (08:51→20:33)
[2020-04-04] MEDS: ASPIRIN 81 MG TAB.CHEW PO SCH (08:51)
[2020-04-04 15:36] VITALS: BP_SYST 109
[2020-04-04 15:41] VITALS: BP 105/50
[2020-04-04] MEDS: LATANOPROST OPHT DROP 2.5 ML BOTTLE EACHEYE SCH (20:48)
[2020-04-04 21:10] VITALS: BP 121/52
[2020-04-05] MEDS: OXYCODONE HCL 5 MG TABLET PO PRN ×3 (03:00→22:31)
[2020-04-05 04:52] VITALS: BP 129/71
[2020-04-05] MEDS: CLINDAMYCIN PHOSPHATE IV 600 MG in IV DEXTROSE 5% 100 ML IV SCH ×3 (05:47→21:07)
[2020-04-05] MEDS: LEVOTHYROXINE SODIUM 50 MCG TABLET PO SCH (06:43)
[2020-04-05 08:20] VITALS: BP 153/67
[2020-04-05] MEDS: ASPIRIN 81 MG TAB.CHEW PO SCH (08:27)
[2020-04-05] MEDS: DOCUSATE SODIUM 100 MG CAPSULE PO SCH ×2 (08:27→21:07)
[2020-04-05 15:31] VITALS: BP 108/45
[2020-04-05 20:16] VITALS: BP 135/63
[2020-04-05] MEDS: LATANOPROST OPHT DROP 2.5 ML BOTTLE EACHEYE SCH (21:07)
[2020-04-06] MEDS: diphenhydrAMINE 25 MG CAP PO PRN ×2 (01:55→21:13)
[2020-04-06 05:09] VITALS: BP 126/73
[2020-04-06] MEDS: CLINDAMYCIN PHOSPHATE IV 600 MG in IV DEXTROSE 5% 100 ML IV SCH ×3 (05:59→22:52)
[2020-04-06] MEDS: OXYCODONE HCL 5 MG TABLET PO PRN ×3 (05:59→20:17)
[2020-04-06] MEDS: LEVOTHYROXINE SODIUM 50 MCG TABLET PO SCH (06:00)
[2020-04-06 07:55] VITALS: BP 124/66
[2020-04-06] MEDS: ASPIRIN 81 MG TAB.CHEW PO SCH (09:08)
[2020-04-06] MEDS: DOCUSATE SODIUM 100 MG CAPSULE PO SCH ×2 (09:08→20:14)
[2020-04-06 15:22] VITALS: BP 122/55
[2020-04-06] MEDS: LATANOPROST OPHT DROP 2.5 ML BOTTLE EACHEYE SCH (20:14)
[2020-04-06 21:46] VITALS: BP 126/60
[2020-04-07] MEDS: CLINDAMYCIN PHOSPHATE IV 600 MG in IV DEXTROSE 5% 100 ML IV SCH ×3 (05:36→21:42)
[2020-04-07] MEDS: LEVOTHYROXINE SODIUM 50 MCG TABLET PO SCH (06:27)
[2020-04-07 08:00] VITALS: BP 138/46
[2020-04-07] MEDS: ASPIRIN 81 MG TAB.CHEW PO SCH (08:53)
[2020-04-07] MEDS: DOCUSATE SODIUM 100 MG CAPSULE PO SCH ×2 (08:53→20:42)
[2020-04-07] MEDS: OXYCODONE HCL 5 MG TABLET PO PRN ×2 (10:19→17:20)
[2020-04-07 12:00] VITALS: BP 122/48
[2020-04-07 16:04] VITALS: BP 119/57
[2020-04-07 20:32] VITALS: BP 117/57
[2020-04-07] MEDS: LATANOPROST OPHT DROP 2.5 ML BOTTLE EACHEYE SCH (20:42)
[2020-04-07] MEDS: ACETAMINOPHEN 325 MG TABLET PO PRN (20:44)
[2020-04-08] MEDS: OXYCODONE HCL 5 MG TABLET PO PRN ×3 (03:05→22:32)
[2020-04-08] MEDS: diphenhydrAMINE 25 MG CAP PO PRN (03:55)
[2020-04-08 05:09] VITALS: BP 123/65
[2020-04-08] MEDS: LEVOTHYROXINE SODIUM 50 MCG TABLET PO SCH (06:11)
[2020-04-08] MEDS: CLINDAMYCIN PHOSPHATE IV 600 MG in IV DEXTROSE 5% 100 ML IV SCH ×4 (06:12→21:39)
[2020-04-08 07:30] VITALS: BP 144/67
[2020-04-08] MEDS: ASPIRIN 81 MG TAB.CHEW PO SCH (08:10)
[2020-04-08] MEDS: DOCUSATE SODIUM 100 MG CAPSULE PO SCH ×2 (08:10→21:03)
[2020-04-08 16:00] VITALS: BP 129/59
[2020-04-08 20:00] VITALS: BP 135/98
[2020-04-08] MEDS: LATANOPROST OPHT DROP 2.5 ML BOTTLE EACHEYE SCH (21:04)
[2020-04-09] MEDS: ACETAMINOPHEN 325 MG TABLET PO PRN (03:35)
[2020-04-09] MEDS: diphenhydrAMINE 25 MG CAP PO PRN ×2 (03:53→21:54)
[2020-04-09 04:00] VITALS: BP 145/70
[2020-04-09] MEDS: CLINDAMYCIN PHOSPHATE IV 600 MG in IV DEXTROSE 5% 100 ML IV SCH ×2 (05:33→13:39)
[2020-04-09 05:58] LABS: BASOPHILS # (AUTO) 0.1 K/uL (0.0-8.0); BASOPHILS % (AUTO) 0.9 % (0.0-2.0); EOSINOPHILS # (AUTO) 0.1 K/uL (0.0-0.7); HEMATOCRIT 28.2 % (31.2-41.9); HEMOGLOBIN 9.5 g/dL (10.9-14.3); LYMPHOCYTES % (AUTO) 26.8 % (20.5-51.5); MEAN CORPUSCULAR HEMOGLOBIN 30.5 uug (24.7-32.8); MEAN CORPUSCULAR HGB CONC 34 g/dL (32.3-35.6); MEAN CORPUSCULAR VOLUME 90.7 fL (75.5-95.3); MONOCYTES # (AUTO) 0.8 K/uL (2.0-10.0); MONOCYTES % (AUTO) 10.3 % (0.0-11.0); NEUTROPHILS # (AUTO) 4.5 K/uL (1.8-8.9); PLATELET COUNT (AUTO) 367 K/uL (179-408); RED BLOOD CELL COUNT(AUTO) 3.11 MIL/uL (3.63-4.92); WHITE BLOOD COUNT (AUTO) 7.5 K/uL (3.8-11.8)
[2020-04-09] MEDS: OXYCODONE HCL 5 MG TABLET PO PRN ×2 (06:00→15:39)
[2020-04-09] MEDS: LEVOTHYROXINE SODIUM 50 MCG TABLET PO SCH (06:04)
[2020-04-09 06:09] LABS: CREATININE 0.8 mg/dL (0.6-1.3); MAGNESIUM 2.5 mg/dL (1.8-2.4); PHOSPHOROUS 3.8 mg/dL (2.5-4.9); POTASSIUM 4.1 mmol/L (3.5-5.1)
[2020-04-09 07:56] VITALS: BP 130/61
[2020-04-09] MEDS: ASPIRIN 81 MG TAB.CHEW PO SCH (08:37)
[2020-04-09] MEDS: DOCUSATE SODIUM 100 MG CAPSULE PO SCH ×2 (08:37→20:43)
[2020-04-09 16:45] VITALS: BP 116/56
[2020-04-09 20:34] VITALS: BP 124/51
[2020-04-09] MEDS: MORPHINE SULFATE SR 15 MG TABLET.SA PO SCH (20:40)
[2020-04-09] MEDS: ACIDOPHILUS/BULGARICUS CHEW TAB PO SCH (20:41)
[2020-04-09] MEDS: LATANOPROST OPHT DROP 2.5 ML BOTTLE EACHEYE SCH (20:43)
[2020-04-09] MEDS ORDERED: OXYCODONE HCL 10 MG TAB.SR.12H PO SCH (21:00)
[2020-04-10] MEDS: OXYCODONE HCL 5 MG TABLET PO PRN (00:03)
[2020-04-10 04:50] VITALS: BP 150/68
[2020-04-10] MEDS: LEVOTHYROXINE SODIUM 50 MCG TABLET PO SCH (06:01)
[2020-04-10 08:19] VITALS: BP 133/74
[2020-04-10] MEDS: DOCUSATE SODIUM 100 MG CAPSULE PO SCH ×2 (08:48→20:49)
[2020-04-10] MEDS: ACIDOPHILUS/BULGARICUS CHEW TAB PO SCH ×2 (08:48→20:49)
[2020-04-10] MEDS: ASPIRIN 81 MG TAB.CHEW PO SCH (08:48)
[2020-04-10] MEDS: MORPHINE SULFATE SR 15 MG TABLET.SA PO SCH ×2 (08:49→20:50)
[2020-04-10] MEDS: ACETAMINOPHEN 325 MG TABLET PO PRN (14:02)
[2020-04-10 16:05] VITALS: BP 121/51
[2020-04-10 20:00] VITALS: BP 145/72
[2020-04-10] MEDS: LATANOPROST OPHT DROP 2.5 ML BOTTLE EACHEYE SCH (20:51)
[2020-04-11] MEDS: OXYCODONE HCL 5 MG TABLET PO PRN ×4 (00:58→23:34)
[2020-04-11 05:05] VITALS: BP 128/69
[2020-04-11] MEDS: LEVOTHYROXINE SODIUM 50 MCG TABLET PO SCH (06:26)
[2020-04-11 08:16] VITALS: BP 126/63
[2020-04-11] MEDS: ACIDOPHILUS/BULGARICUS CHEW TAB PO SCH ×2 (09:11→20:02)
[2020-04-11] MEDS: ASPIRIN 81 MG TAB.CHEW PO SCH (09:12)
[2020-04-11] MEDS: DOCUSATE SODIUM 100 MG CAPSULE PO SCH ×2 (09:44→20:03)
[2020-04-11] MEDS: MORPHINE SULFATE SR 15 MG TABLET.SA PO SCH ×2 (09:44→20:03)
[2020-04-11 15:29] VITALS: BP 121/61
[2020-04-11 20:00] VITALS: BP 121/63
[2020-04-11] MEDS: LATANOPROST OPHT DROP 2.5 ML BOTTLE EACHEYE SCH (21:00)
[2020-04-12 05:10] VITALS: BP 111/67
[2020-04-12] MEDS: LEVOTHYROXINE SODIUM 50 MCG TABLET PO SCH (06:09)
[2020-04-12 08:50] VITALS: BP 134/67
[2020-04-12] MEDS: ASPIRIN 81 MG TAB.CHEW PO SCH (09:16)
[2020-04-12] MEDS: DOCUSATE SODIUM 100 MG CAPSULE PO SCH ×2 (09:16→20:49)
[2020-04-12] MEDS: MORPHINE SULFATE SR 15 MG TABLET.SA PO SCH ×2 (09:16→20:50)
[2020-04-12] MEDS: ACIDOPHILUS/BULGARICUS CHEW TAB PO SCH ×2 (09:16→20:50)
[2020-04-12] MEDS: OXYCODONE HCL 5 MG TABLET PO PRN (14:23)
[2020-04-12 15:19] VITALS: BP 115/54
[2020-04-12 20:37] VITALS: BP 104/52
[2020-04-12] MEDS: LATANOPROST OPHT DROP 2.5 ML BOTTLE EACHEYE SCH (20:51)
[2020-04-12] MEDS: diphenhydrAMINE 25 MG CAP PO PRN (23:30)
[2020-04-13 05:23] VITALS: BP 123/66
[2020-04-13] MEDS: LEVOTHYROXINE SODIUM 50 MCG TABLET PO SCH (06:18)
[2020-04-13 07:30] VITALS: BP_SYST 112; BP_SYST 152; BP_DIAS 58; BP_DIAS 61
[2020-04-13] MEDS: ACIDOPHILUS/BULGARICUS CHEW TAB PO SCH (09:15)
[2020-04-13] MEDS: MORPHINE SULFATE SR 15 MG TABLET.SA PO SCH (09:16)
[2020-04-13] MEDS: ASPIRIN 81 MG TAB.CHEW PO SCH (09:18)
[2020-04-13] MEDS: DOCUSATE SODIUM 100 MG CAPSULE PO SCH (09:18)
[2020-04-13] MEDS: OXYCODONE HCL 5 MG TABLET PO PRN (12:23)
[2020-04-13 15:35] VITALS: BP_SYST 119; BP_SYST 125; BP_DIAS 58; BP_DIAS 65
[2020-04-13] MEDS: ACETAMINOPHEN 325 MG TABLET PO PRN (16:33)
== END 2020-04-13 20:00 | disposition home health service (06) | DRG 559 ==
PROVIDERS: ADMIT Physical Medicine & Rehabilitation Pain Medicine; ATTEND Physical Medicine & Rehabilitation Pain Medicine
DX: Z47.1 Aftercare following joint replacement surgery (principal); E43 Unspecified severe protein-calorie malnutrition; D68.59 Other primary thrombophilia; L03.319 Cellulitis of trunk, unspecified; Z96.642 Presence of left artificial hip joint; M16.12 Unilateral primary osteoarthritis, left hip; K21.9 Gastro-esophageal reflux disease without esophagitis; D64.9 Anemia, unspecified; E03.9 Hypothyroidism, unspecified; E78.5 Hyperlipidemia, unspecified; G89.29 Other chronic pain; I10 Essential (primary) hypertension; B96.89 Other specified bacterial agents as the cause of diseases classified elsewhere; M20.41 Other hammer toe(s) (acquired), right foot; M20.42 Other hammer toe(s) (acquired), left foot; S81.812A Laceration without foreign body, left lower leg, initial encounter; X58.XXXA Exposure to other specified factors, initial encounter; Y92.89 Other specified places as the place of occurrence of the external cause; Z86.73 Personal history of transient ischemic attack (TIA), and cerebral infarction without residual deficits
CPT/HCPCS: 36415; 73501; 82652; 83735; 84100; 84443; 85025; J3490; J7050; J7060; Q0163

== ENCOUNTER 2020-09-20 13:48 | Inpatient (IN) | payer MEDICARE, OTHER ==
[~2020-09-20] VITALS: Ht 162.6 cm; Wt 69.4 kg
[~2020-09-20 13:48] MED LIST changes: +AZEL23SP BNOSTRILS; -NITR100C6 PO; +OMEP20CA16 PO; +OXYC10TA49 PO
--- NOTE | 2020-09-20 16:30 | NUR ---
received report from [facility] from FAWN Bauer. pt admitted to ARU for severe OA and s/p right knee replacement 09/[address] Melchor. pt is awake alert and oriented x3 but sometimes forgetful. Pt has surgical wound on the left knee, norma still intact, dressing clean and dry, covered with gauze and adalberto bandage, photo taken and in chart. pt belongs have been documented, pt has yellow ring that she insisted she keep with her in the belongings bag and not in the safe, charge nurse aware. Pt on room air, on regular diet, uses bed fonseca to void. no signs of distress noted, no reports of pain at this time. pt in bed eating dinner. Bed in low and locked position, call light within reach, safety and fall precautions in place, will endorse to oncoming nurse.
[2020-09-20 17:13] VITALS: BP 148/66
[2020-09-20] MEDS ORDERED: DULO30CA2 PO (17:22)
[2020-09-20] MEDS ORDERED: LATA2.5D15 OP (17:22)
[2020-09-20] MEDS ORDERED: ASPI-612 PO (17:22)
[2020-09-20] MEDS ORDERED: VALS40TA4 PO (17:22)
[2020-09-20] MEDS ORDERED: ATOR10TA PO (17:22)
[2020-09-20] MEDS ORDERED: GABA-536 PO (17:22)
[2020-09-20] MEDS ORDERED: OXYC10TA49 PO (17:22)
[2020-09-20] MEDS ORDERED: LEVO25TA2 PO (17:22)
[2020-09-20] MEDS ORDERED: MAG30ORA PO (17:30)
[2020-09-20] MEDS ORDERED: DOCU100C36 PO (17:41)
[2020-09-20] MEDS ORDERED: MAG HYDROX/AL HYDROX/SIMETH 30 ML LIQUID UDC PO PRN (18:45)
[2020-09-20 19:58] VITALS: BP 129/57
[2020-09-20] MEDS: VALSARTAN 40 MG TABLET PO SCH (20:37)
[2020-09-20] MEDS: ATORVASTATIN 10 MG TABLET PO SCH (20:37)
[2020-09-20] MEDS ORDERED: LATANOPROST OPHT DROP 2.5 ML BOTTLE EACHEYE SCH (21:00)
[2020-09-20] MEDS ORDERED: GABAPENTIN 400 MG CAPSULE PO SCH (21:00)
[2020-09-21] MEDS: OXYCODONE HCL 5 MG TABLET PO PRN ×2 (02:47→14:48)
[2020-09-21 05:37] VITALS: BP 128/65
[2020-09-21] MEDS: LEVOTHYROXINE SODIUM 25 MCG TABLET PO SCH (06:24)
--- NOTE | 2020-09-21 06:46 | NUR ---
Shift End Report: Vs stable. Medicated once for pain with relief. No further complaint presented . All needs attended and met. No significant event reported all night. Continue current rehab plan of care.
[2020-09-21 08:00] VITALS: BP 123/48
[2020-09-21] MEDS: ASPIRIN 325 MG TABLET PO SCH (09:17)
[2020-09-21] MEDS: DOCUSATE SODIUM 100 MG CAPSULE PO SCH ×2 (09:17→17:39)
[2020-09-21] MEDS: DULOXETINE 30 MG CAPSULE.DR PO SCH (09:18)
[2020-09-21] MEDS: VALSARTAN 40 MG TABLET PO SCH ×2 (09:18→20:25)
[2020-09-21] MEDS ORDERED: BISACODYL 10 MG SUPP.RECT RC ONE (10:45)
[2020-09-21] MEDS ORDERED: LATANOPROST OPHT DROP 2.5 ML BOTTLE EACHEYE SCH (10:58)
[2020-09-21 16:02] VITALS: BP 134/58
--- NOTE | 2020-09-21 19:37 | NUR ---
Patient in bed, alert and verbally responsive with periods of forgetfulness, call light within reach. Cooperative upon assessment. VS WNL. Patient on CPM for 2 hours tolerated well. Patient complains of constipation and Katheryn Saavedra ACID BATH MIXER order for dulcolax suppository one time. Patient had a BM small in amount. All needs attended.
--- NOTE | 2020-09-21 19:45 | NUR ---
Awake during initial rounds, sitting at the edge of bed, attempting to go to the bathroom, claiming she wants to do #2. Assisted to the bathroom with FWW. Has small amount of formed BM this time. Good jovanny care and skin care provided. Safely assisted back to bed. Made comfortable.
[2020-09-21] MEDS: GABAPENTIN 300 MG CAPSULE PO SCH (20:24)
[2020-09-21] MEDS: LATANOPROST OPHT DROP 2.5 ML BOTTLE EACHEYE SCH (20:26)
[2020-09-21] MEDS: ATORVASTATIN 10 MG TABLET PO SCH (20:26)
[2020-09-21 20:43] VITALS: BP 106/52
[2020-09-22 04:40] VITALS: BP 148/72
--- NOTE | 2020-09-22 05:47 | NUR ---
Shift End Report: Vs stable. Patient very confused, disoriented to time and place. Often times asking the staffs if the is coming, re-orientation provided as needed. All needs attended and met. Continue care as planned.
[2020-09-22] MEDS: LEVOTHYROXINE SODIUM 25 MCG TABLET PO SCH (06:26)
[2020-09-22 08:00] VITALS: BP 135/65
[2020-09-22] MEDS: DOCUSATE SODIUM 100 MG CAPSULE PO SCH ×2 (08:15→17:16)
[2020-09-22] MEDS: ASPIRIN 325 MG TABLET PO SCH (08:15)
[2020-09-22] MEDS: VALSARTAN 40 MG TABLET PO SCH ×2 (08:15→20:17)
[2020-09-22] MEDS: DULOXETINE 30 MG CAPSULE.DR PO SCH (08:15)
[2020-09-22] MEDS: OXYCODONE HCL 5 MG TABLET PO PRN ×2 (09:07→21:49)
--- NOTE | 2020-09-22 15:00 | NUR ---
Patient is alert and oriented x 2-3 with periods of forgetfulness. Pleasant and cooperative upon assessment. Patient on CPM for 2 hours tolerated well. Seen and examined by Katheryn Figueredo with no new order. All due meds given as ordered. VS WNL. Call light placed within easy reach. Will continue to monitor.
[2020-09-22 16:24] VITALS: BP 116/54
[2020-09-22 20:16] VITALS: BP 133/54
[2020-09-22] MEDS: ATORVASTATIN 10 MG TABLET PO SCH (20:17)
[2020-09-22] MEDS: GABAPENTIN 300 MG CAPSULE PO SCH (20:18)
[2020-09-22] MEDS: LATANOPROST OPHT DROP 2.5 ML BOTTLE EACHEYE SCH (20:19)
--- NOTE | 2020-09-22 22:00 | NUR ---
Patient resting in bed alert and verbally responsive with periods of forgetfulness, Cooperative upon assessment. VS WNL. Patient on CPM for 2 hours tolerated well. All due medication administered as ordered patient c/o pain 8/10 right knee proper alignment positioning PRN pain meds administered, as ordered and help to relieve pain, safety measures observed call light with in reach. continue with current plan of care.
[2020-09-23 04:50] VITALS: BP 103/67
[2020-09-23 05:10] VITALS: BP 140/75
--- NOTE | 2020-09-23 05:18 | NUR ---
Patient slept well in her bed after pain medication Administered with relief, all night . No further complaint presented . All needs attended and met. No significant event reported all night. Continue current rehab plan of care,endorse accordingly to AM shift.
[2020-09-23] MEDS: LEVOTHYROXINE SODIUM 25 MCG TABLET PO SCH (06:57)
[2020-09-23 07:55] VITALS: BP 129/57
[2020-09-23] MEDS: ASPIRIN 325 MG TABLET PO SCH (08:04)
[2020-09-23] MEDS: DULOXETINE 30 MG CAPSULE.DR PO SCH (08:04)
[2020-09-23] MEDS: VALSARTAN 40 MG TABLET PO SCH ×2 (08:05→20:52)
[2020-09-23] MEDS: DOCUSATE SODIUM 100 MG CAPSULE PO SCH ×2 (08:05→17:43)
[2020-09-23] MEDS: OXYCODONE HCL 5 MG TABLET PO PRN ×2 (10:05→17:44)
--- NOTE | 2020-09-23 15:29 | NUR ---
INDIVIDUALIZED PLAN OF CARE
--- NOTE | 2020-09-23 15:37 | NUR ---
INDIVIDUALIZED PLAN OF CARE
[2020-09-23 16:05] VITALS: BP 152/70
--- NOTE | 2020-09-23 18:20 | NUR ---
Patient seen and examined by Dr. Dewitt, update given and MD gave new orders. See order history.
[2020-09-23 20:38] VITALS: BP 105/42
[2020-09-23] MEDS: OXYCODONE HCL 10 MG TAB.SR.12H PO SCH (20:53)
[2020-09-23] MEDS: ATORVASTATIN 10 MG TABLET PO SCH (21:00)
[2020-09-23] MEDS: GABAPENTIN 300 MG CAPSULE PO SCH (21:00)
--- NOTE | 2020-09-23 22:35 | NUR ---
Patient in bed alert x3 with periods of forgetfulness at times Cooperative. VS WNL. Routine Pain medication and All due medication administered as ordered,Proper positioning while patient sleeping. Kept clean and dry.Safety measures observed call light with in reach. continue with current plan of care.
[2020-09-23] MEDS: LATANOPROST OPHT DROP 2.5 ML BOTTLE EACHEYE SCH (23:25)
[2020-09-24 04:00] VITALS: BP 138/66
--- NOTE | 2020-09-24 05:04 | NUR ---
Patient is having sound sleep with no c/o pain or discomfort. No acute distress noted, will continue to monitor. Endorse accordingly to AM shift.
[2020-09-24] MEDS: LEVOTHYROXINE SODIUM 25 MCG TABLET PO SCH (06:42)
[2020-09-24 08:37] VITALS: BP 130/62
[2020-09-24] MEDS: DOCUSATE SODIUM 100 MG CAPSULE PO SCH ×2 (09:30→17:47)
[2020-09-24] MEDS: ASPIRIN 325 MG TABLET PO SCH (09:30)
[2020-09-24] MEDS: VALSARTAN 40 MG TABLET PO SCH ×2 (09:31→21:05)
[2020-09-24] MEDS: DULOXETINE 30 MG CAPSULE.DR PO SCH (09:31)
[2020-09-24] MEDS: OXYCODONE HCL 10 MG TAB.SR.12H PO SCH ×2 (09:41→21:05)
[2020-09-24] MEDS: OXYCODONE/APAP 5-325 MG TABLET PO PRN (14:44)
[2020-09-24 15:27] VITALS: BP 131/55
[2020-09-24 20:56] VITALS: BP 146/60
[2020-09-24] MEDS: GABAPENTIN 300 MG CAPSULE PO SCH (21:05)
[2020-09-24] MEDS: ATORVASTATIN 10 MG TABLET PO SCH (21:05)
[2020-09-24] MEDS: LATANOPROST OPHT DROP 2.5 ML BOTTLE EACHEYE SCH (21:06)
[2020-09-25 04:50] VITALS: BP 128/63
--- NOTE | 2020-09-25 05:51 | NUR ---
Patient resting in bed AxOx3 very forgetful. VS WNL. All due medication administered as ordered patient c/o pain 02/11 right knee proper alignment positioning and ice applied. safety measures maintained and call light with in reach. Pt slept well throughout the night, no acute distress noted. continue with current plan of care.
[2020-09-25] MEDS: LEVOTHYROXINE SODIUM 25 MCG TABLET PO SCH (06:10)
[2020-09-25 07:03] LABS: BASOPHILS % (AUTO) 0.3 % (0.0-2.0); EOSINOPHILS # (AUTO) 0.1 K/uL (0.0-0.7); EOSINOPHILS % (AUTO) 1.2 % (0.0-7.0); HEMATOCRIT 33.2 % (31.2-41.9); HEMOGLOBIN 11.2 g/dL (10.9-14.3); LYMPHOCYTES # (AUTO) 1.4 K/uL (20.0-40.0); LYMPHOCYTES % (AUTO) 17.6 % (20.5-51.5); MEAN CORPUSCULAR HEMOGLOBIN 31.3 uug (24.7-32.8); MEAN CORPUSCULAR HGB CONC 34 g/dL (32.3-35.6); MEAN CORPUSCULAR VOLUME 92.5 fL (75.5-95.3); MONOCYTES % (AUTO) 13.5 % (0.0-11.0); NEUTROPHILS # (AUTO) 5.2 K/uL (1.8-8.9); NEUTROPHILS % (AUTO) 67.4 % (38.5-71.5); PLATELET COUNT (AUTO) 269 K/uL (179-408); RED BLOOD CELL COUNT(AUTO) 3.59 MIL/uL (3.63-4.92); WHITE BLOOD COUNT (AUTO) 7.7 K/uL (3.8-11.8)
[2020-09-25 07:26] LABS: CREATININE 0.7 mg/dL (0.6-1.3); POTASSIUM 4.3 mmol/L (3.5-5.1)
[2020-09-25 08:00] VITALS: BP 139/66
[2020-09-25] MEDS: DULOXETINE 30 MG CAPSULE.DR PO SCH (08:49)
[2020-09-25] MEDS: DOCUSATE SODIUM 100 MG CAPSULE PO SCH ×2 (08:49→16:14)
[2020-09-25] MEDS: ASPIRIN 325 MG TABLET PO SCH (08:49)
[2020-09-25] MEDS: VALSARTAN 40 MG TABLET PO SCH ×2 (08:50→21:05)
[2020-09-25] MEDS: OXYCODONE HCL 10 MG TAB.SR.12H PO SCH ×2 (08:52→21:09)
--- NOTE | 2020-09-25 13:55 | NUR ---
INTERDISCIPLINARY TEAM CONFERENCE
[2020-09-25 14:51] LABS: NEUTROPHILS % (MANUAL) 67 % (42-75)
[2020-09-25 14:52] LABS: EOSINOPHILS % (MANUAL) 2 % (0-8); LYMPHOCYTES % (MANUAL) 18 % (20-40); MONOCYTES % (MANUAL) 13 % (2-10)
[2020-09-25 16:00] VITALS: BP 125/64
[2020-09-25] MEDS: OXYCODONE/APAP 5-325 MG TABLET PO PRN (16:15)
--- NOTE | 2020-09-25 19:30 | NUR ---
EOSS: Pt in bed, watching TV, A&Ox3, noted with episodes of forgetfulness, able to make needs known. No acute distress noted. Due medications given per order, no a/r noted. Pt able to ambulate with FWW, assisted pt safely to restroom and back to bed. Safety measures, aspiration precautions, and fall precautions maintained. Call light and belongings within reach. Will endorse care to drier attendant nurse.
--- NOTE | 2020-09-25 19:50 | NUR ---
Received pt in bed, awake and verbally responsive, forgetful. No s/s of respiratory distress. Denies any pain or discomfort at this time. With R knee immobilizer. Safety measures initiated, call light within reach, will continue to monitor.
[2020-09-25 20:00] VITALS: BP 141/62
[2020-09-25] MEDS: ATORVASTATIN 10 MG TABLET PO SCH (21:05)
[2020-09-25] MEDS: GABAPENTIN 300 MG CAPSULE PO SCH (21:05)
[2020-09-25] MEDS: LATANOPROST OPHT DROP 2.5 ML BOTTLE EACHEYE SCH (21:06)
[2020-09-26] MEDS: LEVOTHYROXINE SODIUM 25 MCG TABLET PO SCH (06:05)
[2020-09-26 07:51] VITALS: BP 132/54
[2020-09-26] MEDS: ASPIRIN 325 MG TABLET PO SCH (08:24)
[2020-09-26] MEDS: DOCUSATE SODIUM 100 MG CAPSULE PO SCH ×2 (08:24→16:50)
[2020-09-26] MEDS: DULOXETINE 30 MG CAPSULE.DR PO SCH (08:25)
[2020-09-26] MEDS: VALSARTAN 40 MG TABLET PO SCH ×2 (08:25→20:43)
[2020-09-26] MEDS: OXYCODONE HCL 10 MG TAB.SR.12H PO SCH ×2 (08:25→20:44)
[2020-09-26] MEDS: OXYCODONE/APAP 5-325 MG TABLET PO PRN (14:10)
[2020-09-26 16:08] VITALS: BP 117/66
[2020-09-26 20:07] VITALS: BP 133/66
[2020-09-26] MEDS: GABAPENTIN 300 MG CAPSULE PO SCH (20:43)
[2020-09-26] MEDS: LATANOPROST OPHT DROP 2.5 ML BOTTLE EACHEYE SCH (20:43)
[2020-09-26] MEDS: ATORVASTATIN 10 MG TABLET PO SCH (20:43)
[2020-09-27 04:00] VITALS: BP_SYST 117; BP_SYST 123; BP_DIAS 54; BP_DIAS 75
[2020-09-27] MEDS: OXYCODONE/APAP 5-325 MG TABLET PO PRN ×2 (05:19→16:56)
[2020-09-27] MEDS: LEVOTHYROXINE SODIUM 25 MCG TABLET PO SCH (06:17)
--- NOTE | 2020-09-27 06:45 | NUR ---
Shift End Report: VS stable. Slept fairly. Constantly calling for little things, repeatedly asking and demanding same thing all over and over again. PRN pain medication was given as ordered and needed with relief. All needs attended and met. Continue current rehab plan of care.
[2020-09-27 07:45] VITALS: BP 132/60
[2020-09-27] MEDS: ASPIRIN 325 MG TABLET PO SCH (08:33)
[2020-09-27] MEDS: DOCUSATE SODIUM 100 MG CAPSULE PO SCH ×2 (08:33→16:23)
[2020-09-27] MEDS: OXYCODONE HCL 10 MG TAB.SR.12H PO SCH ×2 (08:34→20:16)
[2020-09-27] MEDS: VALSARTAN 40 MG TABLET PO SCH ×2 (08:34→20:16)
[2020-09-27] MEDS: DULOXETINE 30 MG CAPSULE.DR PO SCH (08:34)
[2020-09-27 15:05] VITALS: BP 132/59
--- NOTE | 2020-09-27 19:17 | NUR ---
no distress noted, incision dry and clean
[2020-09-27] MEDS: GABAPENTIN 300 MG CAPSULE PO SCH (20:15)
[2020-09-27] MEDS: ATORVASTATIN 10 MG TABLET PO SCH (20:15)
[2020-09-27] MEDS: LATANOPROST OPHT DROP 2.5 ML BOTTLE EACHEYE SCH (20:16)
[2020-09-27 20:27] VITALS: BP 116/60
[2020-09-28] MEDS: OXYCODONE/APAP 5-325 MG TABLET PO PRN ×3 (02:14→17:10)
[2020-09-28 04:00] VITALS: BP 130/62
[2020-09-28] MEDS: LEVOTHYROXINE SODIUM 25 MCG TABLET PO SCH (06:43)
--- NOTE | 2020-09-28 07:18 | NUR ---
Shift End Report: very needy, demanding patient. Repeated request, questions over and over. All needs attended and met. Continue current rehab plan of care.
[2020-09-28 08:00] VITALS: BP 117/57
[2020-09-28] MEDS: DOCUSATE SODIUM 100 MG CAPSULE PO SCH ×2 (08:05→16:58)
[2020-09-28] MEDS: VALSARTAN 40 MG TABLET PO SCH ×2 (08:05→20:48)
[2020-09-28] MEDS: ASPIRIN 325 MG TABLET PO SCH (08:05)
[2020-09-28] MEDS: DULOXETINE 30 MG CAPSULE.DR PO SCH (08:06)
[2020-09-28] MEDS: OXYCODONE HCL 10 MG TAB.SR.12H PO SCH ×2 (08:06→20:47)
--- NOTE | 2020-09-28 09:44 | NUR ---
Received patient in bed, alert and oriented x 2-3 with periods of forgetfulness. Cooperartive upon assessment. NO s/s of distress. VS WNL. All due meds given as ordered. Patient went of the unit for therapy and will continue to monitor.
[2020-09-28 16:05] VITALS: BP 128/56
[2020-09-28 20:15] VITALS: BP 109/58
[2020-09-28] MEDS: GABAPENTIN 300 MG CAPSULE PO SCH (20:47)
[2020-09-28] MEDS: LATANOPROST OPHT DROP 2.5 ML BOTTLE EACHEYE SCH (20:47)
[2020-09-28] MEDS: ATORVASTATIN 10 MG TABLET PO SCH (20:48)
--- NOTE | 2020-09-28 21:12 | NUR ---
Received pt resting in bed and watching tv. AAO 2-3, with episodes of forgetfulness. No acute distress noted. C/o 7/10 pain on the right knee. Scheduled pain med and other due meds given as ordered. Held Diovan due to decreased BP. Denies SOB, CP, or dizziness. Safety measures maintained. Call light and personal items within reach. Will continue to monitor.
[2020-09-29 04:15] VITALS: BP 145/66
[2020-09-29] MEDS: OXYCODONE/APAP 5-325 MG TABLET PO PRN ×2 (05:34→16:04)
[2020-09-29] MEDS: LEVOTHYROXINE SODIUM 25 MCG TABLET PO SCH (06:06)
[2020-09-29 06:24] LABS: BASOPHILS % (AUTO) 0.6 % (0.0-2.0); EOSINOPHILS # (AUTO) 0.1 K/uL (0.0-0.7); EOSINOPHILS % (AUTO) 1.3 % (0.0-7.0); HEMATOCRIT 33.4 % (31.2-41.9); HEMOGLOBIN 11.1 g/dL (10.9-14.3); LYMPHOCYTES # (AUTO) 1.9 K/uL (20.0-40.0); LYMPHOCYTES % (AUTO) 27.6 % (20.5-51.5); MEAN CORPUSCULAR HEMOGLOBIN 30.8 uug (24.7-32.8); MEAN CORPUSCULAR HGB CONC 33 g/dL (32.3-35.6); MEAN CORPUSCULAR VOLUME 92.4 fL (75.5-95.3); MONOCYTES # (AUTO) 0.7 K/uL (2.0-10.0); MONOCYTES % (AUTO) 9.9 % (0.0-11.0); NEUTROPHILS # (AUTO) 4.1 K/uL (1.8-8.9); NEUTROPHILS % (AUTO) 60.6 % (38.5-71.5); PLATELET COUNT (AUTO) 350 K/uL (179-408); RED BLOOD CELL COUNT(AUTO) 3.62 MIL/uL (3.63-4.92); WHITE BLOOD COUNT (AUTO) 6.8 K/uL (3.8-11.8)
[2020-09-29 06:32] LABS: CREATININE 0.7 mg/dL (0.6-1.3); POTASSIUM 4.5 mmol/L (3.5-5.1)
[2020-09-29 08:00] VITALS: BP 119/55
[2020-09-29] MEDS: ASPIRIN 325 MG TABLET PO SCH (08:15)
[2020-09-29] MEDS: DULOXETINE 30 MG CAPSULE.DR PO SCH (08:16)
[2020-09-29] MEDS: DOCUSATE SODIUM 100 MG CAPSULE PO SCH ×2 (08:16→16:03)
[2020-09-29] MEDS: OXYCODONE HCL 10 MG TAB.SR.12H PO SCH ×2 (08:16→20:30)
[2020-09-29] MEDS: VALSARTAN 40 MG TABLET PO SCH ×2 (08:18→20:30)
--- NOTE | 2020-09-29 08:30 | NUR ---
Patient in bed, alert and oriented x 2-3 with periods of forgetfulness. No s/s of distress. All due meds given as ordered . VS WNL ON RA saturating at 95%. Patient went off the unit for therapy.
[2020-09-29 16:22] VITALS: BP 123/55
--- NOTE | 2020-09-29 17:13 | NUR ---
@ 1100 Patient was on CPM machine for 2 hours tolerated well dressing intact on the right knee. Patient is complaining of constipation. Notify Dr. Freeman and ordered for milk of magnesia for constipation .
[2020-09-29] MEDS ORDERED: MAGNESIUM HYDROXIDE 30 ML LIQUID UDC PO ONE (17:15)
[2020-09-29] MEDS: ATORVASTATIN 10 MG TABLET PO SCH (20:30)
[2020-09-29] MEDS: GABAPENTIN 300 MG CAPSULE PO SCH (20:30)
[2020-09-29 20:35] VITALS: BP 132/59
[2020-09-29] MEDS: LATANOPROST OPHT DROP 2.5 ML BOTTLE EACHEYE SCH (20:53)
--- NOTE | 2020-09-29 20:53 | NUR ---
Received pt resting in bed and watching tv. AAO x2-3, with episodes of forgetfulness. No acute distress noted. C/o 9/10 pain on the right knee. Scheduled pain med and other due meds given as ordered. Assisted to the bathroom using walker, pt fairly doing well. Safety measures maintained. Call light and personal items within reach. Will continue to monitor. Addendum: 09/30/20 at 1512 by MALISSA RAMOS RN RN Received patient in bed, alert and orietned x 2-3 with periods of forgetfulness. Call light within reach, cooperative upon assessment. Dressing on the right knee intact. Patient was on CPM machine tolerated well. All needs met. Will continue to monitor.
[2020-09-30] MEDS: OXYCODONE/APAP 5-325 MG TABLET PO PRN ×2 (05:05→14:39)
[2020-09-30 05:30] VITALS: BP 135/56
[2020-09-30] MEDS: LEVOTHYROXINE SODIUM 25 MCG TABLET PO SCH (06:01)
[2020-09-30 07:56] VITALS: BP 94/58
[2020-09-30] MEDS: ASPIRIN 325 MG TABLET PO SCH (08:05)
[2020-09-30] MEDS: DOCUSATE SODIUM 100 MG CAPSULE PO SCH ×2 (08:05→16:13)
[2020-09-30] MEDS: DULOXETINE 30 MG CAPSULE.DR PO SCH (08:05)
[2020-09-30] MEDS: OXYCODONE HCL 10 MG TAB.SR.12H PO SCH ×2 (08:05→20:36)
[2020-09-30] MEDS: VALSARTAN 40 MG TABLET PO SCH ×2 (08:08→20:36)
--- NOTE | 2020-09-30 15:13 | NUR ---
Received patient in bed, alert and orietned x 2-3 with periods of forgetfulness. Call light within reach, cooperative upon assessment. Dressing on the right knee intact. Patient was on CPM machine tolerated well. All needs met. Will continue to monitor.
[2020-09-30 16:00] VITALS: BP 125/57
--- NOTE | 2020-09-30 17:44 | NUR ---
Notify Dr. Frost about patient's last BM that was [address] Frost ordered for dulcolax suppository 10mg one time .
[2020-09-30] MEDS ORDERED: BISACODYL 10 MG SUPP.RECT RC ONE (18:00)
[2020-09-30] MEDS ORDERED: BISACODYL 10 MG SUPP.RECT RC PRN (19:15)
--- NOTE | 2020-09-30 19:45 | NUR ---
Awake, watching TV during initial rounds. Requested assistance to the bathroom. Voided good. Presented tolerable pain on right knee. Safety measurers and fall prevention maintained. Continue care as planned.
[2020-09-30 20:09] VITALS: BP 137/59
[2020-09-30] MEDS: ATORVASTATIN 10 MG TABLET PO SCH (20:37)
[2020-09-30] MEDS: LATANOPROST OPHT DROP 2.5 ML BOTTLE EACHEYE SCH (20:37)
[2020-09-30] MEDS: GABAPENTIN 300 MG CAPSULE PO SCH (20:37)
--- NOTE | 2020-09-30 20:40 | NUR ---
Patient constantly calling for every little things. All needs attended and met.
[2020-10-01] MEDS: OXYCODONE/APAP 5-325 MG TABLET PO PRN ×2 (03:08→13:51)
[2020-10-01 04:33] VITALS: BP 130/64
--- NOTE | 2020-10-01 05:51 | NUR ---
Shift End Report: Vs stable. Very needy, inpatient, slept fairly. All needs attended and met. Continue care as planned.
[2020-10-01] MEDS: LEVOTHYROXINE SODIUM 25 MCG TABLET PO SCH (06:14)
--- NOTE | 2020-10-01 06:32 | NUR ---
Dr Ho made aware with new order of CT head without contrast and X ray right knee.
--- NOTE | 2020-10-01 07:37 | NUR ---
Informed patient Oliverio about the incident. Will update him about patient condition. Endorsed to Am nurse.
[2020-10-01 08:00] VITALS: BP 127/58
[2020-10-01] MEDS: DULOXETINE 30 MG CAPSULE.DR PO SCH (08:27)
[2020-10-01] MEDS: DOCUSATE SODIUM 100 MG CAPSULE PO SCH ×2 (08:27→17:30)
[2020-10-01] MEDS: ASPIRIN 325 MG TABLET PO SCH (08:27)
[2020-10-01] MEDS: VALSARTAN 40 MG TABLET PO SCH ×2 (08:30→21:02)
[2020-10-01] MEDS: OXYCODONE HCL 10 MG TAB.SR.12H PO SCH ×2 (08:34→21:02)
[2020-10-01 16:01] VITALS: BP 117/57
--- NOTE | 2020-10-01 19:40 | NUR ---
Awake, in bed with HOB elevated, busy talking in her cell phone. Body gesture done acknowledging rounds done and she's OK. Safety measures and fall prevention maintained. Continue plan of care.
[2020-10-01 19:48] VITALS: BP 115/57
[2020-10-01] MEDS: ATORVASTATIN 10 MG TABLET PO SCH (21:02)
[2020-10-01] MEDS: LATANOPROST OPHT DROP 2.5 ML BOTTLE EACHEYE SCH (21:03)
[2020-10-01] MEDS: GABAPENTIN 300 MG CAPSULE PO SCH (21:03)
[2020-10-02 04:35] VITALS: BP 134/67
--- NOTE | 2020-10-02 06:10 | NUR ---
Shift End Report: Vs stable. Patient was able to tolerate pain medication given once. No further complaint of pain presented. Continue current rehab plan of care.
[2020-10-02] MEDS: LEVOTHYROXINE SODIUM 25 MCG TABLET PO SCH (06:14)
[2020-10-02 08:00] VITALS: BP 126/60
[2020-10-02] MEDS: ASPIRIN 325 MG TABLET PO SCH (08:22)
[2020-10-02] MEDS: OXYCODONE HCL 10 MG TAB.SR.12H PO SCH ×2 (08:22→20:54)
[2020-10-02] MEDS: DOCUSATE SODIUM 100 MG CAPSULE PO SCH ×2 (08:22→17:49)
[2020-10-02] MEDS: VALSARTAN 40 MG TABLET PO SCH ×2 (08:23→20:55)
[2020-10-02] MEDS: DULOXETINE 30 MG CAPSULE.DR PO SCH (08:23)
--- NOTE | 2020-10-02 14:49 | NUR ---
INTERDISCIPLINARY TEAM CONFERENCE
--- NOTE | 2020-10-02 15:36 | NUR ---
patient is alert, oriented x2, very forgetful, repetitives questions, no acute distress noted, patient is ambulatory with fww with stand by assist, needs met timely.
[2020-10-02 16:00] VITALS: BP 125/55
[2020-10-02] MEDS: OXYCODONE/APAP 5-325 MG TABLET PO PRN (18:24)
--- NOTE | 2020-10-02 19:40 | NUR ---
Awake, in bed, watching TV, very forgetful, kept asking same question all over and over, Re-orient to time, place and situation. Re-instructed patient use of call light and safety issues to avoid fall/injury to self. Safety measures and fall prevention maintained. Continue care as planned.
[2020-10-02 20:46] VITALS: BP 138/67
[2020-10-02] MEDS: ATORVASTATIN 10 MG TABLET PO SCH (20:54)
[2020-10-02] MEDS: LATANOPROST OPHT DROP 2.5 ML BOTTLE EACHEYE SCH (20:55)
[2020-10-02] MEDS: GABAPENTIN 300 MG CAPSULE PO SCH (20:55)
[2020-10-03 04:00] VITALS: BP 127/72
--- NOTE | 2020-10-03 05:42 | NUR ---
Shift End Report: VS stable. All needs attended and met. Slept good. No significant event reported all night. Continue current rehab plan of care.
[2020-10-03] MEDS: LEVOTHYROXINE SODIUM 25 MCG TABLET PO SCH (06:08)
[2020-10-03] MEDS: OXYCODONE/APAP 5-325 MG TABLET PO PRN ×2 (06:24→14:14)
[2020-10-03 08:15] VITALS: BP 117/54
[2020-10-03] MEDS: ASPIRIN 325 MG TABLET PO SCH (09:21)
[2020-10-03] MEDS: DOCUSATE SODIUM 100 MG CAPSULE PO SCH ×2 (09:21→16:59)
[2020-10-03] MEDS: DULOXETINE 30 MG CAPSULE.DR PO SCH (09:21)
[2020-10-03] MEDS: OXYCODONE HCL 10 MG TAB.SR.12H PO SCH ×2 (09:21→20:34)
[2020-10-03] MEDS: VALSARTAN 40 MG TABLET PO SCH ×2 (09:22→20:32)
--- NOTE | 2020-10-03 10:25 | NUR ---
Received call from Michele HENLEY that is stating that the ring is lost, checked the belongings list, it was stated that the patient requested it to be placed in the belongings bag. Located the yellow wedding ring in the bag and patient requested to wear it. Pt is now wearing it on her left hand.
--- NOTE | 2020-10-03 14:22 | NUR ---
Pt is resting in bed. AO x 3, with forgetfulness. Pt has been notified of the discharge plan tomorrow, scheduled at 4 PM. Per KALE Bautista, is also in the loop of plans. Pt still is wearing the ring that they were trying to find earlier. Still with some R knee pain, but managed with routine pain medications and breakthrough pain medication. Pt is verbalizing some hesistancy about the discharge and RN able to talk through most of her concerns. She is now aware that she will be visited by homehealth services for evaluation this coming week after she gets DC'ed from the hospital to continue therapy. Pt able to eat breakfast and lunch with no issues. Hourly rounding done as documented.
--- NOTE | 2020-10-03 14:23 | NUR ---
Pt is AO x 4. Able to tolerate meals today, medications and rehab. Progressing fairly well, surgical incision with no signs of infection, and dressing is clean, dry and intact. Pt is pleasant and cooperative with nurses and rehab staff. He is motivated to improve. VS and condition stable. Hourly rounding done as documented. Addendum: 10/03/20 at 1424 by SIMEON FOSTER RN WRONG PATIENT DELETE
[2020-10-03 14:59] VITALS: BP 122/55
[2020-10-03] MEDS: LATANOPROST OPHT DROP 2.5 ML BOTTLE EACHEYE SCH (20:31)
[2020-10-03] MEDS: ATORVASTATIN 10 MG TABLET PO SCH (20:32)
[2020-10-03] MEDS: GABAPENTIN 300 MG CAPSULE PO SCH (20:32)
[2020-10-03 20:34] VITALS: BP 118/67
--- NOTE | 2020-10-04 00:11 | NUR ---
Patient resting in bed AxOx3, able to make needs known, forgetful. Very excited to be going home tomorrow. VS WNL. All due medication administered as ordered patient c/o pain 6/10 right knee. Readjusted pillows for comfort, proper alignment positioning. assisted to bedside commode x3. safety measures maintained and call light with in reach. no acute distress noted, pt is sleeping. continue with current plan of care.
[2020-10-04 04:00] VITALS: BP 112/72
[2020-10-04] MEDS: LEVOTHYROXINE SODIUM 25 MCG TABLET PO SCH (06:39)
[2020-10-04 08:00] VITALS: BP 103/50
[2020-10-04] MEDS: ASPIRIN 325 MG TABLET PO SCH (09:23)
[2020-10-04] MEDS: DULOXETINE 30 MG CAPSULE.DR PO SCH (09:23)
[2020-10-04] MEDS: DOCUSATE SODIUM 100 MG CAPSULE PO SCH (09:23)
[2020-10-04] MEDS: OXYCODONE HCL 10 MG TAB.SR.12H PO SCH (09:24)
[2020-10-04] MEDS: VALSARTAN 40 MG TABLET PO SCH (09:28)
--- NOTE | 2020-10-04 10:00 | NUR ---
Received pt in assigned room A&Ox3, noted with episodes of forgetfulness, able to make needs known. Pt stated need to use toilet, assisted pt safely to restroom and back to bed with FWW. No acute distress noted. Pt to be discharged today, pt stated "I'm ready to go home". Due medications given per order, no a/r noted. Safety measures, aspiration precautions, and fall precautions in place. Call light and belongings within reach. Continue to monitor.
[2020-10-04 16:00] VITALS: BP 125/54
--- NOTE | 2020-10-04 17:06 | NUR ---
DISCHARGE NOTE: Pt to be discharged home with [facility], pt aware and willing. Pt A&Ox3, NAD, on RA. VSS. All needs attended to. Belongings inventoried and accounted for. Pt denied missing items. Discharge prescription information provided to pt. Assisted pt safely to lobby via at 1700. Pt picked up via private transportation with Oliverio (who, per pt, goes by [employer]). Instructions provided to pt and , pt and verbalized understanding. Pt assisted safely into vehicle.
== END 2020-10-04 17:00 | disposition home health service (06) | DRG 561 ==
PROVIDERS: ADMIT Physical Medicine & Rehabilitation Pain Medicine; ATTEND Physical Medicine & Rehabilitation Pain Medicine
DX: Z47.1 Aftercare following joint replacement surgery (principal); Z96.651 Presence of right artificial knee joint; E03.9 Hypothyroidism, unspecified; E78.5 Hyperlipidemia, unspecified; F32.9 Major depressive disorder, single episode, unspecified; I10 Essential (primary) hypertension; K59.00 Constipation, unspecified; R53.1 Weakness; Z86.73 Personal history of transient ischemic attack (TIA), and cerebral infarction without residual deficits; M17.11 Unilateral primary osteoarthritis, right knee; Z88.0 Allergy status to penicillin
CPT/HCPCS: 36415; 70030-TC; 70450; 71045; 73562; 85025; A4663